=== PATIENT | male | born 1960 | race Caucasian/White ===

== ENCOUNTER 2018-06-18 22:13 | Emergency (ER) | payer OTHER ==
[2018-06-18 22:20] VITALS: BP 142/99
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
== END 2018-06-18 23:19 | disposition home or self-care (01) ==
PROC: 0HQ1XZZ Repair Face Skin, External Approach (ICD-10-PCS; principal; 2018-06-18)
DX: S01.81XA Laceration without foreign body of other part of head, initial encounter (principal); V47.5XXA Car driver injured in collision with fixed or stationary object in traffic accident, initial encounter; Y92.014 Private driveway to single-family (private) house as the place of occurrence of the external cause